=== PATIENT | female | born 1960 | race Caucasian/White ===

== ENCOUNTER 2019-04-23 08:00 | Inpatient (IN) | payer OTHER ==
[2019-04-20 20:26] VITALS: BMI 31.2
[2019-04-23] MEDS ORDERED: BUPIVACAINE LIPOSOME/PF (EXPAREL) 266 MG/20 ML VIAL ONE (16:05)
[2019-04-23] MEDS ORDERED: fentaNYL CITRATE 250 MCG/5 ML VIAL ONE (16:05)
[2019-04-23] MEDS ORDERED: BUPIVACAINE HCL/PF 0.5% (5 MG/ML) 30 ML VIAL IJ ONE (16:05)
[2019-04-23] MEDS ORDERED: PROPOFOL 20 ML ONE ×7 (16:06→19:49)
[2019-04-23] MEDS ORDERED: MIDAZOLAM HCL 2 MG/2 ML SINGLE DOSE VIAL ONE ×2 (16:06)
[2019-04-23] MEDS ORDERED: SUCCINYLCHOLINE CHLORIDE 200 MG/10 ML SYRINGE ONE (16:06)
[2019-04-23] MEDS ORDERED: VANCOMYCIN 1,000 MG VIAL (RESTRICTED TO ID ONLY) ONE (16:11)
[2019-04-23] MEDS ORDERED: HEPARIN NA (PORCINE) 5,000 UNITS/ML 1ML VIAL ONE (16:15)
[2019-04-23] MEDS ORDERED: THROMBIN (BOVINE) 5,000 UNIT VIAL TP ONE (16:15)
[2019-04-23] MEDS ORDERED: VANCOMYCIN 1,000 MG VIAL (RESTRICTED TO ID ONLY) IVPB ONE (16:45)
[2019-04-23] MEDS ORDERED: ALBUTEROL SO4 8 GM HFA INHALER IH ONE (16:51)
[2019-04-23] MEDS ORDERED: EPHEDRINE SULFATE/0.9% NACL/PF 50 MG/10 ML SYRINGE NR ONE (17:10)
[2019-04-23] MEDS ORDERED: ceFAZolin SODIUM 1 GM VIAL IVPB ONE (17:45)
[2019-04-23] MEDS ORDERED: TRANEXAMIC ACID 1000 MG/10 ML VIAL ONE ×2 (18:00→19:54)
[2019-04-23] MEDS ORDERED: NEOSTIGMINE METHYLSULFATE 0.5 MG/1 ML - 10 ML MDV ONE (18:59)
[2019-04-23] MEDS ORDERED: GLYCOPYRROLATE 0.2 MG/1 ML VIAL ONE (19:00)
[2019-04-23] MEDS ORDERED: ONDANSETRON 4 MG/2 ML VIAL ONE ×2 (19:38→20:19)
[2019-04-23] MEDS ORDERED: DEXAMETHASONE SOD PHOSPHATE 4 MG/1 ML VIAL ONE (19:38)
--- NOTE | 2019-04-23 20:30 | PN ---
Progress Note (short form) - Note Progress Note: 59F POD #0 s/p: 1. L5 bilateral laminectomies & inferior facetectomies 2. S1 superior facetectomies 2. L5-S1 posterior instrumentation 3. L5-S1 discectomy 4. L5-S1 posterior lumbar interbody fusion 5. L5-S1 insertion biomechanical device 6. L5-S1 posterolateral arthrodesis 7. Bone allograft 8. Bone autograft 9. Bone marrow aspiration & concentrate autograft 10. Complex wound closure (20cm) -Admit to ICU post-op. -Pain control: patient received pre-op TLIP block w/Exparel; OK to use PSYCHIATRIC AIDE if needed; transition to oral analgesia post-op; NO NSAID's. -DVT PPx: -Mechanical only: GUDELIA's, SCD's. -Chemical: None. -Incentive spirometry q15 min. -NPO until flatus. -Gillis care; d/c when ambulating. -Post-op Ancef q6h x 3 doses. -PT/OT/Rehab, OOB. -WBAT B/L LE. -No bending, lifting (>5 lbs), or twisting for 9-12 months. -Care per ICU & medical hospitalist Dr. Lira. -Discharge planning: f/u 7-10 days after discharge at [facility] office; call for appointment; . -Will follow. Yung Khan MD (Orthopaedic Surgery).
--- NOTE | 2019-04-23 20:33 | OP ---
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 L5 bilateral laminectomies & inferior facetectomies. 2. S1 superior facetectomies. 3. L5-S1 posterior instrumentation. 3. L5-S1 discectomy. 5. L5-S1 posterior lumbar interbody fusion. 6. L5-S1 insertion biomechanical device. 7. L5-S1 posterolateral arthrodesis. 8. Bone allograft. 9. Bone autograft. 10. Bone marrow aspiration & concentrate autograft. 11. Complex wound closure (20cm). Implants: RTI Fortilink Tetrafuse: #11. Screws x 4. Post-Operative Diagnosis: Same as Pre-op Surgeon: Yung Khan Process Specialist: Lit Khan Anesthesiologist/RESOLUTION AGENT: Lili Tobin Anesthesia: General, Local (TLIP) Specimens Removed: L5-S1 disc Estimated Blood Loss (mls): 250 Fluid Volume Replaced (mls): 2,000 (Crystalloid) Operative Report Dictated: Yes
[2019-04-23] MEDS ORDERED: ONDANSETRON 4 MG/2 ML VIAL IVPUSH PRN ×2 (20:41→20:42)
[2019-04-23] MEDS ORDERED: ALBUTEROL SO4 0.083% IH SOL 2.5 MG/3 ML VIAL.NEB. NEB ONE (20:42)
[2019-04-23] MEDS ORDERED: HYDROmorphone *PCA* 10MG/50ML DISP.SYRIN PCA SCH (20:45)
[2019-04-23] MEDS ORDERED: ACETAMINOPHEN 1000 MG/100 ML VIAL (NON FORMULARY) IVPB SCH (20:45)
[2019-04-23] MEDS ORDERED: LACTATED RINGERS SOLUTION 1,000 ML IV SCH ×2 (20:45)
--- NOTE | 2019-04-23 21:07 | CONSULT ---
Consult Consult Specialty:: IM Reason for Consultation:: post-op medical management - History of Present Illness Chief Complaint: still under anesthesia. unable to assess - History Source History Provided By: Medical Record Limitations to Obtaining History: Clinical Condition - Alcohol/Substance Use Hx Alcohol Use: No - Smoking History Smoking history: Former smoker Have you smoked in the past 12 months: No If you are a former smoker, when did you quit?: 7 YEARS AGO Home Medications - Allergies Allergies/Adverse Reactions: Allergies Allergy/AdvReac Type Severity Reaction Status Date / Time aspirin Allergy Rash Verified 04/20/19 20:27 codeine Allergy Rash Verified 04/20/19 20:27 - Home Medications Home Medications: Ambulatory Orders Albuterol Sulfate [Albuterol Sulfate Hfa] 8.5 gm IH PRN 04/20/19 Levothyroxine [Synthroid -] 25 mcg PO DAILY 04/20/19 Lisinopril [Prinivil] 12.5 mg PO DAILY 04/20/19 Montelukast Na [Singulair -] 10 mg PO HS 04/20/19 Family Disease History - Family Disease History Family History: Unremarkable Review of Systems Unable to obtain ROS, reason: somnolent Physical Exam Vital Signs: Vital Signs Temperature 98.0 F 04/23/19 11:14 Pulse Rate 85 04/23/19 11:14 Respiratory Rate 18 04/23/19 11:14 Blood Pressure 109/72 04/23/19 11:14 O2 Sat by Pulse Oximetry (%) Constitutional: Yes: Calm Eyes: Yes: WNL HENT: Yes: WNL Neck: Yes: WNL Cardiovascular: Yes: WNL Respiratory: Yes: WNL Gastrointestinal: Yes: WNL Renal/: Yes: WNL Extremities: Yes: WNL Edema: No Peripheral Pulses WNL: Yes Integumentary: Yes: WNL Wound/Incision: Yes: Clean/Dry, Well Approximated Neurological: Yes: WNL Psychiatric: Yes: WNL Assessment/Plan 59F POD #0 s/p: 1. L5 bilateral laminectomies & inferior facetectomies 2. S1 superior facetectomies 2. L5-S1 posterior instrumentation 3. L5-S1 discectomy 4. L5-S1 posterior lumbar interbody fusion 5. L5-S1 insertion biomechanical device 6. L5-S1 posterolateral arthrodesis 7. Bone allograft 8. Bone autograft 9. Bone marrow aspiration & concentrate autograft 10. Complex wound closure (20cm) cano management. incentive spirometry. -GI, DVT prophylaxis. mechanical . GUDELIA's. -cont chambers catheter till ambulation. -ID: matt-operative Ancef ordered. -COPD: cont bronchodilators. -hypothryoidism: on synthroid -will f/u in AM -
--- NOTE | 2019-04-23 23:45 | CONSULT ---
Consultation: REQUESTING PROVIDER: CONSULT REQUEST: We have been asked to medically evaluate this patient for post- operative medical management s/p . L5-S1 posterior lumbar interbody fusion with insertion of a biomechanical device, posterolateral arthrodesis and bone allograft and autograft. HISTORY OF PRESENT ILLNESS: Ms. 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 Patient is POD #0. Estimated Blood Loss (mls): 250. Fluid Volume Replaced (mls): 2,000 (Crystalloid) Social Hx: denies alcohol use, former smoker (quit 7y ago) Allergies: ASA and Codeine, both cause rash REVIEW OF SYSTEMS: CONSTITUTIONAL: Absent: fever, chills, diaphoresis, generalized weakness, malaise, loss of appetite, weight change HEENT: Absent: rhinorrhea, nasal congestion, throat pain, throat swelling, difficulty swallowing, mouth swelling, ear pain, eye pain, visual changes CARDIOVASCULAR: Absent: chest pain, syncope, palpitations, irregular heart rate, lightheadedness , peripheral edema RESPIRATORY: Absent: cough, shortness of breath, dyspnea with exertion, orthopnea, wheezing, stridor, hemoptysis GASTROINTESTINAL:constipation Absent: abdominal pain, abdominal distension, nausea, vomiting, diarrhea, GENITOURINARY: Absent: dysuria, frequency, urgency, hesitancy MUSCULOSKELETAL: Absent: myalgia, arthralgia, joint swelling, back pain, neck pain SKIN: Absent: rash, itching, pallor HEMATOLOGIC/IMMUNOLOGIC: Absent: easy bleeding, easy bruising, lymphadenopathy, frequent infections ENDOCRINE: Absent: unexplained weight gain, unexplained weight loss, heat intolerance, cold intolerance NEUROLOGIC: patient reports the toes on her lefft foot feel numb but this is no different than her post-operative status Absent: headache, focal weakness or paresthesias, dizziness, unsteady gait, seizure, mental status changes, bladder or bowel incontinence PHYSICAL EXAMINATION Vital Signs - 24 hr 04/23/19 04/23/19 04/23/19 11:14 20:27 20:45 Temperature 98.0 F 98.4 F Pulse Rate 85 86 81 Respiratory 18 14 16 Rate Blood Pressure 109/72 100/64 100/63 O2 Sat by Pulse 96 98 Oximetry (%) 04/23/19 04/23/19 04/23/19 21:00 21:15 21:30 Temperature Pulse Rate 87 88 86 Respiratory 15 11 12 Rate Blood Pressure 118/63 114/62 119/80 O2 Sat by Pulse 98 99 100 Oximetry (%) 04/23/19 04/23/19 04/23/19 21:45 22:00 22:15 Temperature Pulse Rate 91 H 96 H 90 Respiratory 20 19 16 Rate Blood Pressure 120/78 100/50 L 104/46 L O2 Sat by Pulse 100 97 98 Oximetry (%) 04/23/19 04/23/19 22:30 22:45 Temperature 98.2 F Pulse Rate 90 86 Respiratory 14 16 Rate Blood Pressure 100/47 L 100/50 L O2 Sat by Pulse 100 100 Oximetry (%) GENERAL: Awake, alert, and fully oriented, in no acute distress. HEAD: Normal with no signs of trauma. EYES: Pupils equal, round and reactive to light, extraocular movements intact, sclera anicteric, conjunctiva clear. EARS, NOSE, THROAT: Ears normal, nares patent. Moist mucous membranes. NECK: supple without lymphadenopathy, JVD, or masses. LUNGS: Breath sounds equal, clear to auscultation bilaterally. Slight expiratory wheezes bilaterally, and no crackles. No accessory muscle use. HEART: Regular rate and rhythm, normal S1 and S2 without murmur, rub or gallop. ABDOMEN: Soft, nontender, not distended, normoactive bowel sounds, no guarding. MUSCULOSKELETAL: Normal range of motion at all joints. No bony deformities or tenderness. Dressing c/d/i UPPER EXTREMITIES: 2+ pulses, warm, well-perfused. No cyanosis. No clubbing. No peripheral edema. Strength equal bilaterally. LOWER EXTREMITIES: 2+ pulses, warm, well-perfused. No calf tenderness. pedal edema in L foot. Strength equal bilaterally. NEUROLOGICAL: Cranial nerves II-XII intact. Normal speech. Gait not observed. PSYCHIATRIC: Cooperative. Good eye contact. Appropriate mood and affect. SKIN: Warm, dry, no rashes or lesions noted. Laboratory Results - last 24 hr 04/23/19 04/23/19 09:54 11:45 Blood Type B POSITIVE B POSITIVE Antibody Screen Negative Active Medications Generic Name Dose Route Start Last Admin Trade Name Freq PRN Reason Stop Dose Admin Acetaminophen 1,000 mg 04/23/19 23:15 Ofirmev Injection - IVPB 04/24/19 15:16 Q8H MIRANDA Albuterol Sulfate puff 04/23/19 20:45 Ventolin Hfa Inhaler - IH PRN MIRANDA Hydromorphone HCl 10 mg 04/23/19 20:45 04/23/19 21:30 Hydromorphone 10 Mg/50 Ml-Ns PORTABLE PINCH RIVETER 04/24/19 20:44 10 mg PORTABLE PINCH RIVETER MIRANDA Administration Protocol Lactated Ringer's 1,000 mls @ 125 mls/hr 04/23/19 20:45 Lactated Ringers Solution IV ASDIR MIRANDA Levothyroxine Sodium 25 mcg 04/24/19 07:00 Synthroid - PO DAILY@0700 MIRANDA Lisinopril 12.5 mg 04/24/19 10:00 Prinivil PO DAILY MIRANDA Montelukast Sodium 10 mg 04/23/19 22:00 Singulair - PO HS MIRANDA ASSESSMENT/PLAN: 59F POD #0 s/p (per Dr. Khan's note): 1. L5 bilateral laminectomies & inferior facetectomies 2. S1 superior facetectomies 2. L5-S1 posterior instrumentation 3. L5-S1 discectomy 4. L5-S1 posterior lumbar interbody fusion 5. L5-S1 insertion biomechanical device 6. L5-S1 posterolateral arthrodesis 7. Bone allograft 8. Bone autograft 9. Bone marrow aspiration & concentrate autograft 10. Complex wound closure (20cm) Neuro/ MSK -frequent neuro checks q4h - pain management -- Patient received pre-op TLIP block w/Exparel -- PORTABLE PINCH RIVETER pump prn if needed transition to oral analgesia post-op; NO NSAID's. --Ofirimev 1000mg IVPB q8h (3doses) - Physical Activity ---PT/OT -- OOB/ weight bearing activity bilateral LE. CV -HTN, continue home meds -- Lisinopril 12.5mg PO daily once tolerating PO -Continue IVF Pulmonary -Incentive spirometry q15 min. -COPD, continue come bronchodilators -- Ventolin PRN -- Montelukast 10mg PO qHS once tolerating PO Renal -Gillis care; d/c when ambulating. Endo -Hypothyroidism, continue home meds -- Synthroid 25 mcg PO daily once tolerating PO GI -NPO until flatus. ID -Post-op Ancef q6h x 3 doses. DVT PPx: -Mechanical only: GUDELIA's, SCD's. -Chemical: None. Dispo: Per Dr. Khan: f/u 7-10 days after discharge at [facility] office; call for appointment; . No bending, lifting (>5 lbs), or twisting for 9-12 months. We will continue to follow the patient. Thank you for this consultative opportunity. Visit type - Emergency Visit Emergency Visit: No - New Patient This patient is new to me today: Yes Date on this admission: 04/23/19 - Critical Care Critical Care patient: Yes Total Critical Care Time (in minutes): 40 Critical Care Statement: The care of this patient involved high complexity decision making to prevent further life threatening deterioration of the patient 's condition and/or to evaluate & treat vital organ system(s) failure or risk of failure. ATTENDING PHYSICIAN STATEMENT I saw and evaluated the patient. I reviewed the resident's note and discussed the case with the resident. I agree with the resident's findings and plan as documented. SUBJECTIVE: OBJECTIVE: ASSESSMENT AND PLAN:
--- NOTE | 2019-04-24 00:44 | OP ---
DATE OF OPERATION: 04/23/2019 SURGEON: Yung Khan MD HAND ALMOND BLANCHER: Lit Khan MD PREOPERATIVE DIAGNOSIS: Lumbar disk prolapse with left L5-S1 radiculopathy and associated segmental instability. POSTOPERATIVE DIAGNOSIS: Lumbar disk prolapse with left L5-S1 radiculopathy and associated segmental instability. OPERATION: 1. Laminectomy L5 with left and right undercutting facetectomy. 2. Diskectomy L5-S1. 3. Posterior lumbar interbody fusion. 4. Insertion of interbody cage (biomechanical device). 5. Pedicle screw instrumentation L5-S1. 6. Posterolateral arthrodesis L5-S1. 7. Autologous bone graft expanded with bone putty and associated bone marrow aspirate concentrate and allograft. 8. Complex wound closure 15 cm. ANESTHESIA: General ANTIBIOTICS GIVEN: 2 g Kefzol, 1 g vancomycin preoperative; 1 g tranexamic acid preoperative and 1 g tranexamic acid was given postoperative. OPERATION IN DETAILS: The patient was correctly identified, brought in operating room. Patient was placed prone on the Moe table. Lumbar spine was prepped and draped in the routine manner with Betadine scrub solution, wiped off with alcohol, DuraPrep applied. All bony points were appropriately padded. Eyes were attended to with appropriate drape in appropriate positioning and 10 degrees in Trendelenburg position on the table for optic vein drainage. A lateral fluoroscopic x-ray with a Moe retracting position to optimize skin incision. Skin incision was incised from the tip of the spinous process of L4 to the tip of the spinous process of S1. The lamina was exposed appropriately. A subperiosteal dissection was performed. Once thiswas done, dissection taken down the spinous process of the lamina of the facet joint to expose the transverse process of L5 as well as the entire ala of the sacrum in the lumbosacral corner, both left and right hand sides. Each of these spaces was then packed with sponges to provide tamponade hemostasis as well as to provide space for the graft. Once this had been performed, verification of the levels was once again performed with lateral fluoroscopic x-ray. The entire lamina was resected of L5 thus utilizing Kerrison upcuts as well as Leksell rongeurs. The theca was exposed. This was a difficult dissection because the tight, nearly compressed area, combined with the fact that she had obesity and we were working in the depths of this wound. The theca was completely exposed. The appropriate retraction applied. Using Leksell as well as Kerrison upcuts, the laminectomy performed and then both left and right sides were dealt with independently. The inferior facet combined with the pars interarticularis was spread using an osteotome and then once the inferior facet removed, the superior facet was resected utilizing the Casio undercutting facetectomy technique with Kerrison rongeurs. Once the entire theca was completely exposed, the exposed each nerve root sets of L5 and S1 both left and right in side and noted to be exiting freely. The theca was retracted from left to right. Epidural veins were dealt with bipolar Bovie. The disk was entered with an 11 blade. This was helped by lateral fluoroscopic x-ray, and the shaving was to size 10. All disk material removed, sent to lab for histopathology confirmation. The inter disk space was packed with autologous bone graft, this was bone graft harvested with posterior elements, milled in a Midas Chidi mill, packed into the intertransverse plane appropriately. The cage was then sunk into the bone bed to restore the disk height. On x-ray, this appeared excellently seated. Once the cage was inserted, this was a Fortilink 11-mm x 23-mm cage, verification on x-ray revealed excellent positioning. The pedicle screws were inserted. We used anatomic guidelines with lateral fluoroscopic x-raying. A 4-5 drill was utilized for each pedicle. Each pedicle was probed with a ball-tipped probe and each screw measured 6 x 40. Each screw was then tested intraoperatively with neural monitoring, found to be completely safe within the realms of normal parameters, that is well above 10 mA, in fact all were in the region of 20 mA. Two rods were applied. These were 35-mm rods. These were applied to the tulips and fixed solidly into position with the caps, thus providing a solid L5-S1 fusion. The muscle was gently retracted off the bone elements and in an intertransverse plane which had been discussed earlier, in the dissection this was packed with a combination of allograft strips of demineralized osteoid soaked in stem cells. Stem cells had previously been harvested from the left posterior ileum with a Jamshidi needle; 60 mL of marrow was resected, and the intertransverse plane was then packed with the osteocyte material soaked in stem cells both left and right hand sides and then a combination of autologous as well as bone marrow putty was packed into the intertransverse plane at L5-S1, thus competing the pedicle screw instrumentation combined with the posterolateral arthrodesis. The muscles were gently trimmed for fragmented tissue. Closure was in 4 layers thus to complete a complex wound closure of about 20 cm. Muscle 1 Vicryl, facia 1 Vicryl, subcutaneous 1 and 2-0 Vicryl, skin 3-0 Monocryl with Steri-Strips. No drains. Operation went extremely well. No complications. MD KEVIN Hannon/[id number]
[2019-04-24 06:26] LABS: HEMATOCRIT 35.6 % (32.4-45.2); MCH 29.9 pg (25.7-33.7); MCHC 33.7 g/dl (32.0-36.0); MEAN CELL VOLUME 88.6 fl (80-96); MEAN PLT VOLUME 9.3 fl (7.5-11.1); PLATELET COUNT 230 K/MM3 (134-434); RBC 4.02 M/mm3 (3.60-5.2); RDW 13.4 % (11.6-15.6); WHITE BLOOD COUNT 11.1 K/mm3 (4.0-10.0)
[2019-04-24 06:48] LABS: BLOOD UREA NITROGEN 12.7 mg/dL (7-18); CALCIUM 8.4 mg/dL (8.5-10.1); CREATININE 0.9 mg/dL (0.55-1.3); POTASSIUM 4.6 mmol/L (3.5-5.1)
[2019-04-24] MEDS: LEVOTHYROXINE NA 25 MCG TABLET (FP) PO SCH (07:45)
[2019-04-24] MEDS: ACETAMINOPHEN 1000 MG/100 ML VIAL (NON FORMULARY) IVPB SCH ×3 (07:45→14:13)
--- NOTE | 2019-04-24 07:53 | PN ---
Physical Exam: SUBJECTIVE: Pt without any overnight events. She reports not needing to even use the HEAT TREAT WORKER Dilaudid pump available to her. She has no complaints at this point besides being hungry. She denies any numbness/weakness in her lower extremities , denies any pain, any fevers/chills, shortness of breath, CP/discomfort, abdominal discomfort. OBJECTIVE: Vital Signs Period Temp Pulse Resp BP Sys/Amezquita Pulse Ox Last 24 Hr 98.0 F-99.5 F 81-102 11-28 93-120/46-80 93-100 GENERAL: NAD, awake, alert, and fully oriented HEENT: NC/AT, EOMI, PETRA, sclera anicteric, MMM NECK: No JVD LUNGS: CTA bilaterally, no wheezes, no crackles, no accessory muscle use. HEART: RRR, S1, S2 without murmur ABDOMEN: Soft, NT/ND, normoactive bowel sounds, no guarding. BACK: Surgical dressing intact without any drainage noted. Did not take down today considering recent surgical dressing EXTREMITIES: 2+ DP pulses, warm, well-perfused, no edema. NEUROLOGICAL: fuel operator II-XII grossly intact. Strength 5/5 throughout including Lower Ext. Sensation intact and symmetrical. Normal speech, gait not observed. PSYCH: Normal mood, normal affect. SKIN: Warm, dry, no rashes or lesions noted Laboratory Results - last 24 hr 04/23/19 04/23/19 04/24/19 09:54 11:45 06:01 WBC 11.1 H RBC 4.02 Hgb 12.0 Hct 35.6 MCV 88.6 MCH 29.9 MCHC 33.7 RDW 13.4 Plt Count 230 MPV 9.3 Sodium Potassium Chloride Carbon Dioxide Anion Gap BUN Creatinine Est GFR (CKD-EPI)AfAm Est GFR (CKD-EPI)NonAf Random Glucose Calcium Blood Type B POSITIVE B POSITIVE Antibody Screen Negative 04/24/19 06:01 WBC RBC Hgb Hct MCV MCH MCHC RDW Plt Count MPV Sodium 140 Potassium 4.6 Chloride 106 Carbon Dioxide 28 Anion Gap 6 L BUN 12.7 Creatinine 0.9 Est GFR (CKD-EPI)AfAm 82.26 Est GFR (CKD-EPI)NonAf 70.98 Random Glucose 151 H Calcium 8.4 L Blood Type Antibody Screen Active Medications Generic Name Dose Route Start Last Admin Trade Name Freq PRN Reason Stop Dose Admin Acetaminophen 1,000 mg 04/23/19 23:15 04/24/19 00:00 Ofirmev Injection - IVPB 04/24/19 15:16 1,000 mg Q8H MIRANDA Administration Albuterol Sulfate puff 04/23/19 20:45 Ventolin Hfa Inhaler - IH PRN MIRANDA Hydromorphone HCl 10 mg 04/23/19 20:45 04/23/19 21:30 Hydromorphone 10 Mg/50 Ml-Ns HEAT TREAT WORKER 04/24/19 20:44 10 mg HEAT TREAT WORKER MIRANDA Administration Protocol Lactated Ringer's 1,000 mls @ 125 mls/hr 04/23/19 20:45 04/23/19 23:01 Lactated Ringers Solution IV 125 mls/hr ASDIR MIRANDA Administration Levothyroxine Sodium 25 mcg 04/24/19 07:00 Synthroid - PO DAILY@0700 MIRANDA Lisinopril 12.5 mg 04/24/19 10:00 Prinivil PO DAILY MIRANDA Montelukast Sodium 10 mg 04/23/19 22:00 04/24/19 00:00 Singulair - PO Not Given HS MIRANDA ASSESSMENT/PLAN: POD 1 L5-S1 intervention and fusions COPD HTN Hypothyroidism --Advance diet today as tolerated --If tolerates can discontinue IVF --Will discuss with anesthesia about D/C HEAT TREAT WORKER pump and placing oxycodone PRN for break through pain --Continue Tylenol PRN for mild pain --Physical therapy to see today --If OOB can discontinue chambers --Continue Singulair 10mg PO HS --Continue Albuterol PRN --Continue Lisinopril 12.5mg qdaily --Continue Synthroid 25mcg qDaily FEN: Fluids: Can discontinue if tolerates diet Electrolyte abnormalities: None today Nutrition: Advance to soft as tolerated PPX: DVT - SCDs only GI - Not indicated Lab vacation tomorrow [place] [facility] [place] Dr. Maurice West, DO - IM PGY-3 Visit type - Emergency Visit Emergency Visit: No - New Patient This patient is new to me today: Yes Date on this admission: 04/24/19 - Critical Care Critical Care patient: No ATTENDING PHYSICIAN STATEMENT I saw and evaluated the patient. I reviewed the resident's note and discussed the case with the resident. I agree with the resident's findings and plan as documented. SUBJECTIVE: OBJECTIVE: ASSESSMENT AND PLAN:
[2019-04-24] MEDS ORDERED: ALBUTEROL SO4 8 GM HFA INHALER IH PRN (08:21)
[2019-04-24] MEDS: LISINOPRIL 5 MG TABLET (FP) PO SCH (09:41)
--- NOTE | 2019-04-24 10:00 | PN ---
Progress Note, Physician - Current Medication List Current Medications: Active Medications Acetaminophen (Ofirmev Injection -) 1,000 mg IVPB Q8H [facility] Stop: 04/24/19 15:16 Last Admin: 04/24/19 07:45 Dose: 1,000 mg Albuterol Sulfate (Ventolin Hfa Inhaler -) 1 puff IH Q6H PRN PRN Reason: SHORTNESS OF BREATH Hydromorphone HCl (Hydromorphone 10 Mg/50 Ml-Ns) 10 mg CHIEF CLINICAL DIETITIAN CHIEF CLINICAL DIETITIAN [facility]; Protocol Stop: 04/24/19 20:44 Last Admin: 04/23/19 21:30 Dose: 10 mg Lactated Ringer's (Lactated Ringers Solution) 1,000 mls @ 125 mls/hr IV ASDIR [facility] Last Admin: 04/23/19 23:01 Dose: 125 mls/hr Levothyroxine Sodium (Synthroid -) 25 mcg PO DAILY@0700 [facility] Last Admin: 04/24/19 07:45 Dose: 25 mcg Lisinopril (Prinivil) 12.5 mg PO DAILY [facility] Last Admin: 04/24/19 09:41 Dose: 12.5 mg Montelukast Sodium (Singulair -) 10 mg PO HS [facility] Last Admin: 04/24/19 00:00 Dose: Not Given - Objective Vital Signs: Vital Signs Temperature 99.5 F 04/24/19 06:00 Pulse Rate 93 H 04/24/19 06:00 Respiratory Rate 19 04/24/19 06:00 Blood Pressure 96/50 L 04/24/19 06:00 O2 Sat by Pulse Oximetry (%) 98 04/24/19 01:30 Labs: CBC, BMP 04/24/19 06:01 04/24/19 06:01 Assessment/Plan 59F POD #0 s/p: 1. L5 bilateral laminectomies & inferior facetectomies 2. S1 superior facetectomies 2. L5-S1 posterior instrumentation 3. L5-S1 discectomy 4. L5-S1 posterior lumbar interbody fusion 5. L5-S1 insertion biomechanical device 6. L5-S1 posterolateral arthrodesis 7. Bone allograft 8. Bone autograft 9. Bone marrow aspiration & concentrate autograft 10. Complex wound closure (20cm), POD#1 cano management. incentive spirometry. -GI, DVT prophylaxis. mechanical . GUDELIA's. -cont chambers catheter till ambulation. -HTN: on lisinopril -oral diet started and well tolerated. -ID: matt-operative Ancef ordered. -COPD: cont bronchodilators. -hypothryoidism: on synthroid -Pt can be downgraded to regular floor. -
[2019-04-24] MEDS ORDERED: PANTOPRAZOLE 40 MG TABLET (FP) PO ONE (10:33)
--- NOTE | 2019-04-24 11:49 | PN ---
Progress Note (short form) - Note Progress Note: Anesthesia postop note 59 y/o F s/p GA/TLIP/AIR MOTOR REPAIRER for L5-S1 PLIF POD#1, vss, aaox3, pain fairly well controlled, did not use retirement sales consultant overnight. NO anesthesia complications, discontinue retirement sales consultant.
--- NOTE | 2019-04-24 13:56 | PN ---
Teaching Attending Note Name of Resident: Wale West ATTENDING PHYSICIAN STATEMENT I saw and evaluated the patient. I reviewed the resident's note and discussed the case with the resident. I agree with the resident's findings and plan as documented. SUBJECTIVE: Patient seen and examined in the ICU. Minimal discomfort at the surgical site. No CP or SOB. Intake & Output 04/21/19 04/22/19 04/23/19 04/24/19 23:59 23:59 23:59 23:59 Intake Total 2375 615 Output Total 900 150 Balance 1475 465 Weight 160 lb 178 lb 14.4 oz Last Vital Signs Temp Pulse Resp BP Pulse Ox 99.5 F 92 H 18 113/59 L 98 04/24/19 06:00 04/24/19 10:00 04/24/19 10:00 04/24/19 10:00 04/24/19 09:00 Active Medications Acetaminophen (Ofirmev Injection -) 1,000 mg IVPB Q8H [facility] Stop: 04/24/19 15:16 Last Admin: 04/24/19 07:45 Dose: 1,000 mg Albuterol Sulfate (Ventolin Hfa Inhaler -) 1 puff IH Q6H PRN PRN Reason: SHORTNESS OF BREATH Levothyroxine Sodium (Synthroid -) 25 mcg PO DAILY@0700 [facility] Last Admin: 04/24/19 07:45 Dose: 25 mcg Lisinopril (Prinivil) 12.5 mg PO DAILY [facility] Last Admin: 04/24/19 09:41 Dose: 12.5 mg Montelukast Sodium (Singulair -) 10 mg PO HS [facility] Last Admin: 04/24/19 00:00 Dose: Not Given Pantoprazole Sodium (Protonix -) 40 mg PO DAILY [facility] GENERAL: NAD, awake, alert, and fully oriented HEENT: NC/AT, sclera anicteric, MMM NECK: No JVD LUNGS: CTA bilaterally, no wheezes, no crackles, no accessory muscle use. HEART: RRR, S1, S2 without murmur ABDOMEN: Soft, NT/ND, normoactive bowel sounds, no guarding. BACK: Surgical dressing intact without any drainage noted. EXTREMITIES: 2+ DP pulses, warm, well-perfused, no edema. NEUROLOGICAL: Non-focal PSYCH: Normal mood, normal affect. SKIN: Warm, dry, no rashes or lesions noted Laboratory Results - last 24 hr 04/23/19 04/23/19 04/24/19 09:54 11:45 06:01 WBC 11.1 H RBC 4.02 Hgb 12.0 Hct 35.6 MCV 88.6 MCH 29.9 MCHC 33.7 RDW 13.4 Plt Count 230 MPV 9.3 Sodium Potassium Chloride Carbon Dioxide Anion Gap BUN Creatinine Est GFR (CKD-EPI)AfAm Est GFR (CKD-EPI)NonAf Random Glucose Calcium Blood Type B POSITIVE B POSITIVE Antibody Screen Negative 04/24/19 06:01 WBC RBC Hgb Hct MCV MCH MCHC RDW Plt Count MPV Sodium 140 Potassium 4.6 Chloride 106 Carbon Dioxide 28 Anion Gap 6 L BUN 12.7 Creatinine 0.9 Est GFR (CKD-EPI)AfAm 82.26 Est GFR (CKD-EPI)NonAf 70.98 Random Glucose 151 H Calcium 8.4 L Blood Type Antibody Screen ASSESSMENT/PLAN: POD #1: L5-S1 intervention and fusions COPD HTN Hypothyroidism Incentive Spirometry O2 as needed Pain control PO as tolerated Singulair 10mg PO HS Albuterol PRN Lisinopril 12.5mg Synthroid 25mcg Floor Dr Richards
[2019-04-24] MEDS: ACETAMINOPHEN 1000 MG/100 ML VIAL (NON FORMULARY) IVPB PRN (18:36)
--- NOTE | 2019-04-24 20:29 | PN ---
Progress Note (short form) - Note Progress Note: POD#1 Walked in the hallway. C/O constipation No significant LBP No leg pain Temp As per chart [facility] Stable Resp Clear ABD Soft Gaseous distension Wound Dry bandage Neuro All at baseline ASSESS Doing well PLAN D/C home tomorrow PT FWBAT Minimal sitting Pain Mx See in office 10 days Keep wound dry
[2019-04-24] MEDS: MONTELUKAST NA 10 MG TABLET PO SCH ×2 (21:46)
[2019-04-25] MEDS: ACETAMINOPHEN 1000 MG/100 ML VIAL (NON FORMULARY) IVPB PRN ×3 (00:57→15:33)
[2019-04-25] MEDS: LEVOTHYROXINE NA 25 MCG TABLET (FP) PO SCH (06:21)
[2019-04-25] MEDS: LISINOPRIL 5 MG TABLET (FP) PO SCH (11:12)
[2019-04-25] MEDS: PANTOPRAZOLE 40 MG TABLET (FP) PO SCH (11:13)
--- NOTE | 2019-04-25 17:20 | PATH ---
Surgical Pathology Report Patient Name: LEONEL ALVARADO Med. Rec. #: [id number] /Age/Gender: 1960 (Age: 59) / F Account: [id number] Location: [facility] MED/SURG Taken: 04/23/2019 Received: 04/24/2019 Reported: 04/25/2019 Physicians: Lit Khan M.D. Specimen(s) Received DISC L5/S1 Clinical History Spinal stenosis Final Diagnosis DISC, L5-S1, POSTERIOR LUMBAR INTERBODY FUSION: BENIGN INTERVERTEBRAL DISC TISSUE AND BONE. Electronically Signed Leila Hernandez M.D. Gross Description Received in formalin labeled "disc L5-S1," is a 2.7 x 2.3 x 0.4 cm aggregate of jacobs brown fragments of fibrocartilaginous tissue. The specimen is entirely submitted in one cassette. /04/24/2019 saudi04/24/2019
--- NOTE | 2019-04-25 19:20 | PN ---
Progress Note, Physician Chief Complaint: generalized weakness - Current Medication List Current Medications: Active Medications Albuterol Sulfate (Ventolin Hfa Inhaler -) 1 puff IH Q6H PRN PRN Reason: SHORTNESS OF BREATH Levothyroxine Sodium (Synthroid -) 25 mcg PO DAILY@0700 [facility] Last Admin: 04/25/19 06:21 Dose: 25 mcg Lisinopril (Prinivil) 12.5 mg PO DAILY [facility] Last Admin: 04/25/19 11:12 Dose: 12.5 mg Montelukast Sodium (Singulair -) 10 mg PO HS [facility] Last Admin: 04/24/19 21:46 Dose: 10 mg Pantoprazole Sodium (Protonix -) 40 mg PO DAILY [facility] Last Admin: 04/25/19 11:13 Dose: 40 mg Tramadol HCl (Ultram -) 50 mg PO Q6H PRN PRN Reason: PAIN SCALE 6-10 - Objective Vital Signs: Vital Signs Temperature 98.8 F 04/25/19 17:16 Pulse Rate 99 H 04/25/19 17:16 Respiratory Rate 20 04/25/19 17:16 Blood Pressure 121/67 04/25/19 17:16 O2 Sat by Pulse Oximetry (%) 100 04/24/19 21:00 Constitutional: Yes: Well Nourished, No Distress Eyes: Yes: WNL HENT: Yes: WNL Neck: Yes: WNL Cardiovascular: Yes: WNL Respiratory: Yes: WNL Gastrointestinal: Yes: WNL Genitourinary: Yes: WNL Musculoskeletal: Yes: Joint Stiffness Extremities: Yes: WNL Edema: No Peripheral Pulses WNL: Yes Integumentary: Yes: WNL Wound/Incision: Yes: Clean/Dry Neurological: Yes: WNL Labs: CBC, BMP 04/24/19 06:01 04/24/19 06:01 Assessment/Plan 59F POD #0 s/p: 1. L5 bilateral laminectomies & inferior facetectomies 2. S1 superior facetectomies 2. L5-S1 posterior instrumentation 3. L5-S1 discectomy 4. L5-S1 posterior lumbar interbody fusion 5. L5-S1 insertion biomechanical device 6. L5-S1 posterolateral arthrodesis 7. Bone allograft 8. Bone autograft 9. Bone marrow aspiration & concentrate autograft 10. Complex wound closure (20cm), POD#2 cano management. incentive spirometry. -GI, DVT prophylaxis. mechanical . GUDELIA's. -cont chambers catheter till ambulation. -HTN: on lisinopril -oral diet started and well tolerated. -ID: matt-operative Ancef ordered. -COPD: cont bronchodilators. -hypothryoidism: on synthroid -DC plan scheduled for tomorrow assessment and plan discussed with pt and family at bedside. -
[2019-04-25] MEDS: traMADol HCL 50 MG TABLET PO PRN (21:40)
[2019-04-25] MEDS: MONTELUKAST NA 10 MG TABLET PO SCH (21:41)
[2019-04-26] MEDS: traMADol HCL 50 MG TABLET PO PRN ×2 (03:44→11:34)
[2019-04-26] MEDS: LEVOTHYROXINE NA 25 MCG TABLET (FP) PO SCH (06:40)
--- NOTE | 2019-04-26 11:27 | DS ---
Physical Examination Vital Signs: Vital Signs Temperature 99.7 F H 04/26/19 06:00 Pulse Rate 104 H 04/26/19 06:00 Respiratory Rate 20 04/26/19 06:00 Blood Pressure 109/72 04/26/19 06:00 O2 Sat by Pulse Oximetry (%) 100 04/24/19 21:00 Labs: CBC, BMP 04/24/19 06:01 04/24/19 06:01 Discharge Summary Reason For Visit: SPINAL STENOSIS Hospital Course: 59F POD #0 s/p: 1. L5 bilateral laminectomies & inferior facetectomies 2. S1 superior facetectomies 2. L5-S1 posterior instrumentation 3. L5-S1 discectomy 4. L5-S1 posterior lumbar interbody fusion 5. L5-S1 insertion biomechanical device 6. L5-S1 posterolateral arthrodesis 7. Bone allograft 8. Bone autograft 9. Bone marrow aspiration & concentrate autograft 10. Complex wound closure (20cm), POD#3 cano management. incentive spirometry. -GI, DVT prophylaxis. mechanical . GUDELIA's. -cont chambers catheter till ambulation. -HTN: on lisinopril -oral diet started and well tolerated. -ID: matt-operative Ancef ordered. -COPD: cont bronchodilators. -hypothryoidism: on synthroid Condition: Good - Instructions Disposition: HOME - Home Medications Comprehensive Discharge Medication List: Ambulatory Orders Albuterol Sulfate [Albuterol Sulfate Hfa] 8.5 gm IH PRN 04/20/19 Levothyroxine [Synthroid -] 25 mcg PO DAILY 04/20/19 Lisinopril [Prinivil] 12.5 mg PO DAILY 04/20/19 Montelukast Na [Singulair -] 10 mg PO HS 04/20/19
[2019-04-26] MEDS: PANTOPRAZOLE 40 MG TABLET (FP) PO SCH (11:39)
[2019-04-26] MEDS: LISINOPRIL 5 MG TABLET (FP) PO SCH (11:40)
[2019-04-26 13:05] VITALS: BP 124/60; PULSE 102; TEMP 99.2
== END 2019-04-26 15:01 | disposition home or self-care (01) | DRG 304 ==
LOC: JSAMEDAYSX 09:32 → JICU 22:53 → J8W 04-24 19:24
PROVIDERS: ADMIT Orthopaedic Surgery Orthopaedic Surgery of the Spine; ATTEND Orthopaedic Surgery Orthopaedic Surgery of the Spine
PROC: 0SG3071 Fusion of Lumbosacral Joint with Autologous Tissue Substitute, Posterior Approach, Posterior Column, Open Approach (ICD-10-PCS; 2019-04-23)
PROC: 0ST40ZZ Resection of Lumbosacral Disc, Open Approach (ICD-10-PCS; 2019-04-23)
PROC: 07DR0ZZ Extraction of Iliac Bone Marrow, Open Approach (ICD-10-PCS; 2019-04-23)
PROC: 01NB0ZZ Release Lumbar Nerve, Open Approach (ICD-10-PCS; 2019-04-23)
PROC: 4A11X4G Monitoring of Peripheral Nervous Electrical Activity, Intraoperative, External Approach (ICD-10-PCS; 2019-04-23)
PROC: 0SG30AJ Fusion of Lumbosacral Joint with Interbody Fusion Device, Posterior Approach, Anterior Column, Open Approach (ICD-10-PCS; principal; 2019-04-23 12:00)
DX: M48.062 Spinal stenosis, lumbar region with neurogenic claudication (principal); I10 Essential (primary) hypertension; Z87.891 Personal history of nicotine dependence; J44.9 Chronic obstructive pulmonary disease, unspecified; E03.9 Hypothyroidism, unspecified; E66.9 Obesity, unspecified; Z68.32 Body mass index [BMI] 32.0-32.9, adult; M51.17 Intervertebral disc disorders with radiculopathy, lumbosacral region
CPT/HCPCS: 36415; 76000-TC-FY; 80048; 82962; 85027; 86850; 86900; 86901; 88304-TC; 94760; 97116-GP; 97161-GP; J0131; J1644